=== PATIENT | female | born 1945 | race Caucasian/White ===

== ENCOUNTER 2016-09-16 21:01 | Emergency (ER) | payer OTHER ==
[~2016-09-16] VITALS: Ht 162.6 cm; Wt 88.5 kg
[~2016-09-16 21:01] MED LIST: GUAI400T PO; NAPR-1126 PO; RANI150T8 PO
--- NOTE | 2016-09-16 21:29 | NUR ---
Dr. Lemons at bedside for eval.
[2016-09-16] MEDS: HYDROMORPHONE 1 MG/1 ML DISP.SYRIN IM ONE (21:44)
[2016-09-16] MEDS: PROMETHAZINE HCL 25 MG/1 ML VIAL IM ONE (21:44)
[2016-09-16] MEDS ORDERED: PROMETHAZINE HCL 25 MG/1 ML VIAL ONE (21:52)
[2016-09-16] MEDS ORDERED: HYDROMORPHONE 2 MG/1 ML DISP.SYRIN ONE (21:52)
--- NOTE | 2016-09-16 22:11 | NUR ---
patient returned from x-ray.
--- NOTE | 2016-09-16 22:15 | NUR ---
pain medication effective, 0/10pain at this time. nausea medication effective at this time, denies any nausea/vomiting
--- NOTE | 2016-09-16 22:32 | NUR ---
Patient discharged to home in stable conditon. Written and verbal after care instructions given. Patient verbalizes understanding of instructions.
[2016-09-16 22:33] VITALS: BP 141/75
== END 2016-09-16 22:34 | disposition home or self-care (01) ==
LOC: ER 21:02
DX: M54.5 Low back pain (principal); G89.29 Other chronic pain; F17.200 Nicotine dependence, unspecified, uncomplicated; Z88.6 Allergy status to analgesic agent; J45.909 Unspecified asthma, uncomplicated; J44.9 Chronic obstructive pulmonary disease, unspecified; K21.9 Gastro-esophageal reflux disease without esophagitis; G43.909 Migraine, unspecified, not intractable, without status migrainosus
CPT/HCPCS: 72100; A4663; J1170; J2550